=== PATIENT | male | born 1960 | race Caucasian/White ===

== ENCOUNTER 2021-05-29 10:53 | Emergency (ER) | payer MEDICARE, OTHER ==
[2021-05-29] MEDS ORDERED: HYDROmorphone 1 MG/ML Syringe IVPUSH ONE (11:02)
[2021-05-29] MEDS ORDERED: Ondansetron 4 MG/2 ML SDV IVPUSH ONE (11:03)
[2021-05-29] MEDS ORDERED: Sodium Chloride 0.9% 500 ML IV SCH (11:15)
--- NOTE | 2021-05-29 11:22 | EDM.PDOC ---
ED HPI GENERAL MEDICAL PROBLEM - General Chief Complaint: Abdominal Pain Stated Complaint: ABDOMINAL PAIN Time Seen by Provider: 05/29/21 10:53 Source of Information: Reports: Patient, Family History Limitations: Reports: No Limitations - History of Present Illness INITIAL COMMENTS - FREE TEXT/NARRATIVE: 61-year-old male presents to the emergency room with acute onset of abdominal pain. Symptoms started last night about 830 he feels it was severe onset lasting about 20 minutes and then subsided to the point to where he felt like he got a sleep. He once again had this happen again at 1:30 in the morning and resolved. About 10:00 this morning symptoms became severe again and presented to the [facility]. Lab work was drawn with normal white count normal complete metabolic panel and was scheduled for an ultrasound of his right upper quadrant today at 4:30 to rule out cholecystitis. His pain intensity continued and therefore was transferred over to the emergency room for further evaluation. He denies any nausea complaints. He rates the pain a 10 out of 10 and is constant. No history of cholecystitis in the past no history of appendicitis. He denies any chest pain or shortness of breath. He denies any fever chills. No diaphoresis. Onset Date: 05/28/21 Onset Time: 20:30 Duration: Minutes: (20minutes), Colic, Recurring Location: Reports: Abdomen Quality: Reports: Sharp Severity: Severe Improves with: Reports: None Worsens with: Reports: None Associated Symptoms: Denies: Confusion, Chest Pain, Diaphoresis, Fever/Chills, Nausea/Vomiting, Shortness of Breath Right Upper Abdomen Pain Score (Numeric/FACES): 9 - Related Data Allergies Allergy/AdvReac Type Severity Reaction Status Date / Time lactose Allergy Diarrhea Verified 05/29/21 11:41 morphine Allergy Nausea and Verified 05/29/21 11:41 Vomiting Home Meds: Home Meds Ascorbate Calcium [Vitamin C] 500 mg PO DAILY 05/29/21 [History] Aspirin 325 mg PO BEDTIME 05/29/21 [History] Fluticasone Propionate [Flonase] 1 spray NASBOTH BID PRN 05/29/21 [History] Gabapentin [Neurontin] 600 mg PO QID 05/29/21 [History] Multivit-Min/FA/Lycopen/Lutein [Centrum Silver Tablet] 1 tab PO DAILY 05/29/21 [History] Rosuvastatin Calcium 10 mg PO BEDTIME 05/29/21 [History] Sildenafil [Viagra] 50 mg PO BEDTIME PRN 05/29/21 [History] atenoloL [Atenolol] 50 mg PO BID 05/29/21 [History] traZODone HCl [Trazodone HCl] 100 mg PO BEDTIME 05/29/21 [History] ED ROS GENERAL - Review of Systems Review Of Systems: See Below Constitutional: Reports: No Symptoms HEENT: Reports: No Symptoms Respiratory: Reports: No Symptoms Cardiovascular: Reports: No Symptoms Endocrine: Reports: No Symptoms GI/Abdominal: Reports: Abdominal Pain. Denies: Black Stool, Bloody Stool, Constipation, Diarrhea, Distension, Flatus, Nausea, Stool Incontinence, Vomiting : Reports: No Symptoms Musculoskeletal: Reports: No Symptoms Skin: Reports: No Symptoms Neurological: Reports: No Symptoms Psychiatric: Reports: No Symptoms Hematologic/Lymphatic: Reports: No Symptoms Immunologic: Reports: No Symptoms ED EXAM, GI/ABD - Physical Exam Exam: See Below Exam Limited By: No Limitations General Appearance: Alert, WD/WN, Severe Distress. No: Active Emesis Eyes: Bilateral: Normal Appearance, EOMI Ears: Hearing Grossly Normal Nose: Normal Inspection Throat/Mouth: Normal Voice, No Airway Compromise Head: Atraumatic, Normocephalic Neck: Normal Inspection, Supple, Non-Tender Respiratory/Chest: No Respiratory Distress, Lungs Clear, Normal Breath Sounds Cardiovascular: Normal Peripheral Pulses, Regular Rate, Rhythm GI/Abdominal Exam: Normal Bowel Sounds, Soft, Non-Tender, No Distention, No Abnormal Bruit, No Mass, Pelvis Stable. No: Distended, Guarding, Rigid, Rebound Back Exam: Normal Inspection, Full Range of Motion. No: CVA Tenderness (L), CVA Tenderness (R) Extremities: Normal Inspection, Normal Range of Motion, Non-Tender, No Pedal Edema Neurological: Alert, Oriented, CN II-XII Intact, No Motor/Sensory Deficits Psychiatric: Normal Affect, Anxious Skin Exam: Warm, Dry, Intact, Normal Color, No Rash Lymphatic: No Adenopathy Course - Vital Signs Last Recorded V/S: Last Vital Signs Temp 97.4 F 05/29/21 11:00 Pulse 67 05/29/21 13:16 Resp 16 05/29/21 13:16 BP 137/83 05/29/21 13:16 Pulse Ox 93 L 05/29/21 13:16 - Orders/Labs/Meds Orders: Active Orders 24 hr Category Date Time Status Peripheral IV Care [RC] . DIRECTED Care 05/29/21 11:54 Active Sodium Chloride 0.9% @ 999 MLS/HR (1000ml) Med 05/29/21 12:43 Ordered Sodium Chloride 0.9% [Normal Saline] 1,000 ml IV .BOLUS Sodium Chloride 0.9% [Normal Saline] 50 ml Med 05/29/21 12:15 Active IV ASDIRECTED Sodium Chloride 0.9% [Normal Saline] 500 ml Med 05/29/21 11:15 Active IV .BOLUS Sodium Chloride 0.9% [Saline Flush] Med 05/29/21 11:54 Active 10 ml FLUSH Q8HR PRN Peripheral IV Insertion Adult [OM.PC] Routine Oth 05/29/21 11:54 Ordered Medication Orders Sodium Chloride (Normal Saline) 500 mls @ 1,000 mls/hr IV .BOLUS IAN Last Admin: 05/29/21 11:59 Dose: 1,000 mls/hr Documented by: MAYRA Sodium Chloride (Normal Saline) 50 mls @ 200 mls/hr IV ASDIRECTED IAN Last Admin: 05/29/21 11:55 Dose: 200 mls/hr Documented by: DISHA Sodium Chloride (Normal Saline) 1,000 mls @ 999 mls/hr IV .BOLUS ONE Stop: 05/29/21 13:43 Last Admin: 05/29/21 12:56 Dose: 999 mls/hr Documented by: Sodium Chloride (Sodium Chloride 0.9% 10 Ml Syringe) 10 ml FLUSH Q8HR PRN PRN Reason: keep vein open Last Admin: 05/29/21 11:58 Dose: 10 ml Documented by: Admin: 05/29/21 11:57 Dose: 10 ml Documented by: Admin: 05/29/21 11:56 Dose: 10 ml Documented by: MAYRA Labs: Laboratory Tests 05/29/21 Range/Units 12:40 Specimen Type Urinvoid Urine Color Yellow (YELLOW) Urine Appearance Slightly cloudy H (CLEAR) Urine pH 5.0 (5.0-9.0) Ur Specific [place] <= 1.005 (1.005-1.030) Urine Protein Negative (NEGATIVE) mg/dL Urine Glucose (UA) Negative (NEGATIVE) mg/dL Urine Ketones Negative (NEGATIVE) mg/dL Urine Occult Blood Large H (NEGATIVE) Urine Nitrite Negative (NEGATIVE) Urine Bilirubin Negative (NEGATIVE) Urine Urobilinogen 0.2 (0.2-1.0) E.U./dL Ur Leukocyte Esterase Negative (NEGATIVE) Urine RBC >100 H (0-5) /HPF Urine WBC 0-5 (0-5) /HPF Ur Epithelial Cells Rare /LPF Urine Bacteria Rare (NONE TO FEW) /HPF Meds: Medications Generic Name Dose Route Start Last Admin Trade Name Freq PRN Reason Stop Dose Admin Sodium Chloride 500 mls @ 1,000 mls/hr 05/29/21 11:15 05/29/21 11:59 Normal Saline IV 1,000 mls/hr .BOLUS IAN Administration Sodium Chloride 50 mls @ 200 mls/hr 05/29/21 12:15 05/29/21 11:55 Normal Saline IV 200 mls/hr ASDIRECTED IAN Administration Sodium Chloride 1,000 mls @ 999 mls/hr 05/29/21 12:43 05/29/21 12:56 Normal Saline IV 05/29/21 13:43 999 mls/hr .BOLUS ONE Administration Sodium Chloride 10 ml 05/29/21 11:54 05/29/21 11:58 Sodium Chloride 0.9% 10 Ml Syringe FLUSH 10 ml Q8HR PRN Administration keep vein open Discontinued Medications Generic Name Dose Route Start Last Admin Trade Name Freq PRN Reason Stop Dose Admin Hydromorphone HCl 1 mg 05/29/21 11:02 05/29/21 11:15 Hydromorphone 1 Mg/Ml Syringe IVPUSH 05/29/21 11:03 1 mg ONETIME ONE Administration Iopamidol 75 ml 05/29/21 12:08 05/29/21 11:55 Iopamidol 755 Mg/Ml 75 Ml Bottle IVPUSH 05/29/21 12:09 75 ml ONETIME ONE Administration Ondansetron HCl 8 mg 05/29/21 11:03 05/29/21 11:10 Ondansetron 4 Mg/2 Ml Sdv IVPUSH 05/29/21 11:04 8 mg ONETIME ONE Administration - Re-Assessments/Exams Free Text/Narrative Re-Assessment/Exam: 05/29/21 11:19 Patient was given 1 mg of IV Dilaudid and 8 mg of IV Zofran. His pain had subsided substantially with Dilaudid. Patient is scheduled for CT scan of the abdomen 05/29/21 11:30 Patient now rates his pain a 2 out of 10 previously was a 10 out of 10, reports he is much more comfortable. Free Text/Narrative Re-Assessment/Exam: 05/29/21 13:25 Patient is continuing to do well he is receiving IV fluid resuscitation a. He reports his pain is between a 0 and 1 out of 10. We have gone over CT scan and identification of a right renal calculus in the ureter 4 mm in size up. We will have him continue to strain his urine for passing of the stone. Departure - Departure Time of Disposition: 14:00 Disposition: Home, Self-Care 01 Condition: Good Clinical Impression: Renal calculus, right - Discharge Information Instructions: Renal Colic Referrals: Eliana Echevarria MD [Primary Care Provider] - Forms: ED Department Discharge Care Plan Goals: 1. Fluid resuscitation 2. Strain urine for identification of passing stone. 3. Turn to the ER if colicky pain returns. Urology consult if stone is not passed naturally. 4. Follow-up with primary care as needed Sepsis Event Note (ED) - Focused Exam Vital Signs: Vital Signs Temp Pulse Resp BP Pulse Ox 05/29/21 13:16 67 16 137/83 93 L 05/29/21 12:30 66 16 133/79 96 05/29/21 12:15 67 16 134/81 96 05/29/21 12:00 69 18 139/90 95 05/29/21 11:45 70 18 130/89 96 05/29/21 11:30 71 18 121/82 96 05/29/21 11:15 72 18 149/89 H 95 05/29/21 11:00 97.4 F 73 20 156/101 H 95 - My Orders Last 24 Hours: My Active Orders 05/29/21 11:15 Sodium Chloride 0.9% [Normal Saline] 500 ml IV .BOLUS 05/29/21 11:54 Peripheral IV Care [RC] . DIRECTED Sodium Chloride 0.9% [Saline Flush] 10 ml FLUSH Q8HR PRN Peripheral IV Insertion Adult [OM.PC] Routine 05/29/21 12:15 Sodium Chloride 0.9% [Normal Saline] 50 ml IV ASDIRECTED 05/29/21 12:43 Sodium Chloride 0.9% @ 999 MLS/HR (1000ml) Sodium Chloride 0.9% [Normal Saline] 1,000 ml IV .BOLUS - Assessment/Plan Last 24 Hours: My Active Orders 05/29/21 11:15 Sodium Chloride 0.9% [Normal Saline] 500 ml IV .BOLUS 05/29/21 11:54 Peripheral IV Care [RC] . DIRECTED Sodium Chloride 0.9% [Saline Flush] 10 ml FLUSH Q8HR PRN Peripheral IV Insertion Adult [OM.PC] Routine 05/29/21 12:15 Sodium Chloride 0.9% [Normal Saline] 50 ml IV ASDIRECTED 05/29/21 12:43 Sodium Chloride 0.9% @ 999 MLS/HR (1000ml) Sodium Chloride 0.9% [Normal Saline] 1,000 ml IV .BOLUS Assessment:: Right renal calculus Plan: 1. oral fluid resuscitation 2. Strain the urine from passing a stone. 3. Return to the emergency room if colicky pain should return. Urology consultation if stone is not passed. 4. Follow-up with your primary care for routine follow-up.
[2021-05-29] MEDS: Sodium Chloride 0.9% 10 ML Syringe FLUSH PRN ×3 (11:56→11:58)
[2021-05-29] MEDS ORDERED: Iopamidol 755 Mg/ML 75 ML Bottle IVPUSH ONE (12:08)
[2021-05-29] MEDS ORDERED: Sodium Chloride 0.9% 50 ML IV SCH (12:15)
--- NOTE | 2021-05-29 12:36 | CT ---
[id number] CT/CT Abdomen Pelvis WWO IV Exam: CT Abdomen Pelvis WWO IV Clinical Data: ABDOMINAL PAIN COMPARISON: NO PREVIOUS SIMILAR EXAM IS AVAILABLE FINDINGS: A 4 mm radiopaque calculus is seen in the distal right ureter on image 1:30, series 2 The appendix is seen on images 85 through 100, series 2 The appendix appears normal The gallbladder is not distended. The gallbladder wall is normal There are no definite radiopaque gallstones The liver shows an occasional tiny hepatic cyst The spleen is unremarkable The aorta, adrenals, left kidney, and pancreas show no acute abnormalities The pelvis shows no mass or adenopathy There is an occasional tiny renal cyst IMPRESSION: 4 MM DISTAL RIGHT URETERAL CALCULUS Ke Valle MD 05/29/21 [id number] Thank you for allowing us to participate in the care of your patient.
[2021-05-29] MEDS ORDERED: Sodium Chloride 0.9% 1,000 ML IV ONE (12:43)
== END 2021-05-29 14:00 | disposition home or self-care (01) ==
LOC: KA.ED 10:53
DX: N20.2 Calculus of kidney with calculus of ureter (principal); Z91.011 Allergy to milk products; Z88.6 Allergy status to analgesic agent; Z79.82 Long term (current) use of aspirin; Z79.899 Other long term (current) drug therapy
CPT/HCPCS: 74177; 81001; 96374; 96375; 99284; 99284-25; J1170; J2405; J7030; J7040; Q9967